=== PATIENT | male | born 1995 | race Caucasian/White ===

== ENCOUNTER 2020-10-07 18:55 | Emergency (ER) | payer MEDICAID, OTHER ==
[~2020-10-07] VITALS: Ht 167.6 cm; Wt 75.0 kg
[2020-10-07 19:32] VITALS: BP 142/71
[2020-10-07] MEDS ORDERED: BACITRACIN 0.9 GM PACKET OINTMENT TP ONE (19:45)
[2020-10-07] MEDS ORDERED: POVIDONE-IODINE 10% 15 ML SOLUTION UD TP ONE (19:45)
[2020-10-07] MEDS ORDERED: LIDOCAINE 1% 10 ML VIAL SQ ONE (19:45)
[2020-10-07] MEDS ORDERED: IBUPROFEN 600 MG TABLET PO ONE (19:45)
[2020-10-07] MEDS ORDERED: PERTUSS(ACELL),DIPH,TET VAC/PF 0.5 ML SYRINGE IM. ONE (20:00)
== END 2020-10-07 20:29 | disposition home or self-care (01) ==
LOC: EMS 18:55
DX: S61.412A Laceration without foreign body of left hand, initial encounter (principal); W26.0XXA Contact with knife, initial encounter; Y93.89 Activity, other specified; Y92.89 Other specified places as the place of occurrence of the external cause; Y99.8 Other external cause status
CPT/HCPCS: 12001; 90471; 90715; 99283; J3490

== ENCOUNTER 2020-10-17 14:37 | Emergency (ER) | payer MEDICAID ==
[~2020-10-17] VITALS: Ht 162.6 cm; Wt 79.5 kg
[2020-10-17 14:43] VITALS: BP 135/75
== END 2020-10-17 16:27 | disposition home or self-care (01) ==
LOC: EMS 14:39
DX: S61.412D Laceration without foreign body of left hand, subsequent encounter (principal); Z48.02 Encounter for removal of sutures; W45.8XXD Other foreign body or object entering through skin, subsequent encounter
CPT/HCPCS: 99281; Z7502